=== PATIENT | female | born 1985 | race Caucasian/White ===

== ENCOUNTER → 2016-12-21 | Outpatient (CLI) | payer OTHER ==
[2016-12-21 13:54] LABS: PREG INTERNAL NEGATIVE QC NEG CLEAR BACKGROUND; PREG INTERNAL POSITIVE QC POS CONTROL LINE
== END | disposition home or self-care (01) ==
LOC: C.LAB1850 12:15
PROVIDERS: ATTEND Obstetrics & Gynecology
DX: N91.2 Amenorrhea, unspecified (principal)

== ENCOUNTER → 2016-12-23 | Outpatient (CLI) | payer OTHER | END | disposition home or self-care (01) | LOC: C.LAB1850 11:33 | PROVIDERS: ATTEND Obstetrics & Gynecology | DX: Z32.00 Encounter for pregnancy test, result unknown (principal) ==

== ENCOUNTER → 2016-12-28 | Outpatient (CLI) | payer OTHER | END | disposition home or self-care (01) | LOC: C.LAB1850 09:58 | PROVIDERS: ATTEND Obstetrics & Gynecology | DX: O02.1 Missed abortion (principal) ==

== ENCOUNTER → 2017-01-13 | Outpatient (CLI) | payer OTHER ==
[2017-01-13 17:19] LABS: URINE APPEARANCE CLEAR (CLEAR); URINE BILIRUBIN NEG (NEG); URINE COLOR YELLOW; URINE EPITHELIAL CELL AUTO >30 /lpf (0-5); URINE NITRITE NEG (NEG); URINE SPECIFIC GRAVITY 1.024 (1.000-1.030); UROBILINOGEN NEG (NEG)
[2017-01-13 17:25] LABS: MANUAL MICROSCOPIC REQUIRED? NO; REVIEW REQ? YES
== END | disposition home or self-care (01) ==
LOC: C.LABSPEC 16:34
PROVIDERS: ATTEND Obstetrics & Gynecology
DX: Z34.81 Encounter for supervision of other normal pregnancy, first trimester (principal)

== ENCOUNTER → 2017-01-19 | Outpatient (CLI) | payer OTHER ==
[2017-01-19 13:17] LABS: BASO % 0.2 %; BASO ABS # 0.02 K/uL (0-0.2); COMPLETE YES; EOS % 3.3 %; HEMATOCRIT 38.7 % (37-47); IG% 0.2 %; LYMPH % 23.9 %; LYMPH ABS # 2.19 K/uL (1.2-3.4); MEAN CELL VOLUME 84.3 fL (80-100); MEAN CORPUSCULAR HEMOGLOBIN 29.4 pg (25-34); MEAN CORPUSCULAR HGB CONC 34.9 g/dl (32-36); MEAN PLATELET VOLUME 10.1 fL (7.4-10.4); MONO % 6.3 %; NEUT % 66.1 %; PLATELET COUNT 261 K/uL (130-400); RED BLOOD COUNT 4.59 M/uL (4.2-5.4); WHITE BLOOD COUNT 9.16 K/uL (4.8-10.8)
[2017-01-21 14:58] LABS: CHLAMYDIA TRACH RNA*** NOT DETECTED (NOT DETECTED); GC (NEIS GONORRHOEAE)RNA** NOT DETECTED (NOT DETECTED)
== END | disposition home or self-care (01) ==
LOC: C.LAB1850 11:05
PROVIDERS: ATTEND Obstetrics & Gynecology
DX: Z34.81 Encounter for supervision of other normal pregnancy, first trimester (principal)

== ENCOUNTER → 2017-03-22 | Outpatient (CLI) | payer OTHER ==
[2017-03-22 13:42] LABS: GTGD 50 Grams
== END | disposition home or self-care (01) ==
LOC: C.LAB1850 10:48
PROVIDERS: ATTEND Obstetrics & Gynecology
DX: Z34.82 Encounter for supervision of other normal pregnancy, second trimester (principal)

== ENCOUNTER → 2017-04-07 | Outpatient (CLI) | payer OTHER | END | disposition home or self-care (01) | LOC: C.LAB1850 08:50 | PROVIDERS: ATTEND Obstetrics & Gynecology | DX: O28.1 Abnormal biochemical finding on antenatal screening of mother (principal) ==

== ENCOUNTER → 2017-04-12 | Outpatient (CLI) | payer OTHER | END | disposition home or self-care (01) | LOC: C.LAB1850 08:56 | PROVIDERS: ATTEND Obstetrics & Gynecology | DX: O28.1 Abnormal biochemical finding on antenatal screening of mother (principal) ==

== ENCOUNTER → 2017-06-14 | Outpatient (CLI) | payer OTHER | END | disposition home or self-care (01) | LOC: C.LABSPEC 11:11 | PROVIDERS: ATTEND Obstetrics & Gynecology | DX: Z34.83 Encounter for supervision of other normal pregnancy, third trimester (principal) ==

== ENCOUNTER → 2017-06-22 | Outpatient (CLI) | payer OTHER ==
[2017-06-22 10:17] LABS: HEMATOCRIT 34.1 % (37-47); HEMOGLOBIN 11.4 g/dL (12.0-16.0)
== END | disposition home or self-care (01) ==
LOC: C.LAB1850 08:49
PROVIDERS: ATTEND Obstetrics & Gynecology
DX: Z34.83 Encounter for supervision of other normal pregnancy, third trimester (principal); O28.1 Abnormal biochemical finding on antenatal screening of mother

== ENCOUNTER → 2017-08-11 | Outpatient (CLI) | payer OTHER ==
[~2017-08-11] MED LIST: PRENTAB26 PO; SERT-234 PO
== END | disposition home or self-care (01) ==
LOC: C.LABSPEC 13:04
PROVIDERS: ATTEND Obstetrics & Gynecology
DX: Z34.83 Encounter for supervision of other normal pregnancy, third trimester (principal)

== ENCOUNTER 2017-08-19 00:52 | Inpatient (IN) | payer OTHER ==
[~2017-08-19] VITALS: Ht 165.1 cm; Wt 116.1 kg
[2017-08-19] VITALS (7 sets, daily range): BP systolic 116–134; BP diastolic 75–83; PULSE 72–84; TEMP 36.8–36.9; O2SAT 96–98; Ht 165.1 cm; Wt 116.1 kg
[2017-08-19] MEDS ORDERED: PRENTAB26 PO (01:36)
[2017-08-19] MEDS ORDERED: SERT-234 PO (01:36)
[2017-08-19 01:53] LABS: HEMATOCRIT 32.2 % (37-47); HEMOGLOBIN 10.6 g/dL (12.0-16.0); MEAN CELL VOLUME 79.1 fL (80-100); MEAN PLATELET VOLUME 10.1 fL (7.4-10.4); NUCLEATED RED BLOOD CELL ABS 0.03 K/uL (0-0); PLATELET COUNT 221 K/uL (130-400); RED CELL DISTRIBUTION WIDTH CV 15.5 % (11.5-14.5); RED CELL DISTRIBUTION WIDTH SD 45.3 fL (36.4-46.3); WHITE BLOOD COUNT 9.95 K/uL (4.8-10.8)
[2017-08-19 02:01] LABS: MEAN CORPUSCULAR HGB CONC 32.9 g/dl (32-36)
[2017-08-19] MEDS ORDERED: EpHEDrine SULFATE INJ 50 MG/ML AMP ONE (02:07)
[2017-08-19] MEDS ORDERED: BUPIVACAINE 0.25% 30 ML VIAL ONE (02:07)
[2017-08-19] MEDS ORDERED: FENTANYL CITRATE INJ 50 MCG/1 ML 2 ML VIAL ONE ×2 (02:08→10:58)
[2017-08-19] MEDS ORDERED: FENTANYL 2MCG/ML ROPIV 1.25MG/ML 100ML BAG EPI ONE (02:08)
[2017-08-19] MEDS ORDERED: NALOXONE HCL INJ 1 MG in SODIUM CHLORIDE 0.9% 1000ML 1,000 ML IV PRN ×4 (02:53)
[2017-08-19] MEDS ORDERED: LACTATED RINGER'S 1000ML 500 ML IV PRN ×2 (02:53→04:14)
[2017-08-19] MEDS ORDERED: PROMETHAZINE HCL INJ 25 MG in SODIUM CHLORIDE 0.9% 50ML 50 ML IV PRN (03:00)
[2017-08-19] MEDS ORDERED: ONDANSETRON INJ 2 MG/ML 2 ML VIAL IV PRN ×3 (03:00→11:00)
[2017-08-19] MEDS ORDERED: EpHEDrine SULFATE INJ 50 MG/ML AMP IV PRN ×2 (03:00→11:00)
[2017-08-19] MEDS ORDERED: NALOXONE HCL INJ 0.4 MG/1 ML VIAL/CARP IV PRN (03:00)
[2017-08-19] MEDS ORDERED: FENTANYL 2MCG/ML ROPIV 1.25MG/ML 100ML BAG EPI PRN (03:00)
[2017-08-19] MEDS ORDERED: NALBUPHINE HCL INJ 10 MG/ML AMP IV PRN (03:00)
[2017-08-19] MEDS ORDERED: DiphenhydrAMINE HCL 50 MG/ML VIAL IV PRN ×2 (03:00→10:45)
[2017-08-19] MEDS ORDERED: OXYTOCIN 30 UNITS/500ML NSS IV PRN (04:15)
[2017-08-19] MEDS ORDERED: CEFAZOLIN IV 3,000 MG in SYRINGE 0 ML IV SCH (06:00)
[2017-08-19] MEDS ORDERED: LACTATED RINGER'S 1000ML 1,000 ML IV SCH (09:34)
[2017-08-19] MEDS ORDERED: CITRIC ACID/SODIUM CITRATE 15 ML UDC ONE (09:38)
[2017-08-19] MEDS ORDERED: CITRIC ACID/SODIUM CITRATE 15 ML UDC PO ONE (09:45)
[2017-08-19] MEDS ORDERED: LIDOCAINE/EPINEPHRINE 2% 1:200,000 20 ML SDV ONE (09:57)
[2017-08-19] MEDS ORDERED: OXYTOCIN INJ 10 UNITS/ML VIAL ONE (09:57)
[2017-08-19] MEDS ORDERED: MoRPHine SULFATE PF 1 MG/ML 10 ML AMP/VIAL ONE (10:02)
[2017-08-19] MEDS ORDERED: ONDANSETRON INJ 2 MG/ML 2 ML VIAL ONE (10:07)
[2017-08-19] MEDS ORDERED: PHENYLEPHRINE 100MCG/ML 5ML SYR ONE (10:23)
[2017-08-19] MEDS ORDERED: KETOROLAC TROMETHAMINE 30 MG/ML VIAL ONE (10:41)
[2017-08-19] MEDS ORDERED: LANOLIN OINT EXT PRN (10:45)
[2017-08-19] MEDS ORDERED: BENZOCAINE 20% AER SPR 82.5 GM CAN EXT PRN (10:45)
[2017-08-19] MEDS ORDERED: SUPERCREAM 0.870 % 15GM JAR EXT PRN (10:45)
[2017-08-19] MEDS ORDERED: HYDROCORTISONE ACETATE 25 MG SUPP PR PRN (10:45)
[2017-08-19] MEDS ORDERED: DIPHTHERIA/TETANUS/PERTUSSIS 0.5 ML SYR/VIAL IM. ONE (10:45)
--- NOTE | 2017-08-19 10:52 | [facility] Post Operative Brief Note ---
Immediate Operative Summary Operative Date Aug 19, 2017. Pre-Operative Diagnosis 1) Term 2) Non-reassuring FHT'ing 3) Desired Sterilization Post-Operative Diagnosis same Procedure(s) Performed 1) Emergent LCT C/S 2) Bilaterl tubal ligation Surgeon Yas Reservation Clerk Surgeon(s) Nursing Estimated Blood Loss 800 Findings See Below (exam, normal appearing tubes and ovaries bilaterally, bilateral tubal ligation) viable female, Apgars 7/8; weigh 6lbs 2 ozs, gasses pending, placenta for Fluids (cc crystalloids) 1500 Specimens 1) Placenta 2) Cord Bloods 3) Cord gasses 4) tibal segments Drains Casas to gravity Anesthesia Type L&D Only EPID Exist Complication(s) none Disposition Accompanied Pt To Recover: yes Disposition: L&D
[2017-08-19] MEDS ORDERED: MEPERIDINE HCL 25 MG/ML CARP IV PRN (11:00)
[2017-08-19] MEDS ORDERED: NO NARCOTICS OR SEDATIVES SCH (11:00)
[2017-08-19] MEDS ORDERED: ATROPINE SULFATE 0.1 MG/ML 5ML SYR IV PRN (11:00)
[2017-08-19] MEDS ORDERED: ACETAMINOPHEN 1000 MG/100 ML IV IV ONE (11:00)
[2017-08-19] MEDS ORDERED: CONTINUE MEDICATION ONE (11:00)
[2017-08-19] MEDS ORDERED: FENTANYL CITRATE INJ 50 MCG/1 ML 2 ML VIAL IV PRN (11:00)
[2017-08-19] MEDS ORDERED: MoRPHine SULFATE PF 1 MG/ML 10 ML AMP/VIAL EPI PRN (11:00)
[2017-08-19] MEDS ORDERED: DC INTRASPINAL MORPHINE PRN (11:00)
[2017-08-19] MEDS ORDERED: KETOROLAC TROMETHAMINE 30 MG/ML VIAL IV. PRN (11:00)
--- NOTE | 2017-08-19 11:03 | Anesthesia Procedure Note ---
Anesthesia Epidural Removal Nt Date & Time Aug 19, 2017 at 11:03 Vital Signs Pain Intensity: 9.0 Notes Mental Status: alert / awake / arousable, participated in evaluation Nausea / Vomiting: adequately controlled Pain: adequately controlled Airway Patency, RR, SpO2: stable & adequate BP & HR: stable & adequate Hydration State: stable & adequate Neuraxial Anesthesia: was administered, sensory block is resolving Anesthetic Complications: no major complications apparent, pt satisfied with anesthetic care Epidural: removed without complications, with tip intact
--- NOTE | 2017-08-19 11:39 | OPERATIVE REPORT ---
DATE OF OPERATION: 08/19/2017 PREOPERATIVE DIAGNOSES: 1. Term . 2. Nonreassuring heart rate tracing. 3. Desired permanent surgical sterilization. POSTOPERATIVE DIAGNOSES: Same. PROCEDURE PERFORMED: 1. Emergent primary low cervical transverse section. 2. Bilateral tubal ligation. SURGEON: Dr. Sorenson. ANESTHESIA: Epidural. FINDINGS: Viable female infant with Apgars of 7 and 8 and weight of 6 pounds 2 ounces. Arterial and venous cord gases pending. Placenta delivered for pathological evaluation. Normal appearing tubes and ovaries bilaterally. Bilateral segment of fallopian tube sent for pathological evaluation. PROCEDURE IN DETAIL: The patient was taken to the operating room and after an adequate epidural anesthesia level, was placed in supine position, draped and prepped in usual fashion. Pfannenstiel-type incision was made. Underlying subcutaneous tissue was dissected down to the ventral abdominal fascia, which was nicked and opened in a horizontal manner. Preperitoneal fascia was dissected away until the peritoneal cavity was entered and opened in a vertical manner. The Mack self-retaining retractor was then inserted into the peritoneal cavity and placed. The peritoneum overlying the lower uterine segment was elevated, opened in a semi-lunar fashion, the inferior margin of which was taken down creating the bladder flap. The uterus was entered sharply and extended in a semilunar fashion manually. Viable female was delivered. Cord was clamped and cut and the baby was passed off to pediatrics who was in attendance for the delivery. Cord gases, cord blood samples were obtained and the placenta was delivered spontaneously and sent for pathological evaluation. The uterus was exteriorized. The uterine cavity was wiped clean off any residual blood tissue and/or clot. The uterine incision was then closed with 2 layers of 4-0 Vicryl, the first a running locking stitch, the second an imbricating stitch. Hemostasis achieved. The right fallopian tube was then isolated followed to the fimbriated end, a segment of which was elevated, doubly ligated with 0 plain suture and cut and removed from the field. Hemostasis present. In a similar fashion, the left fallopian tube was isolated followed to the fimbriated end, a segment of which was elevated, doubly ligated with 0 plain suture, and cut and removed from the field. Hemostasis present. The uterus was returned to the pelvic cavity. The pericolic gutters were cleared bilaterally off any blood tissue and/or clot. The uterine incision was inspected for hemostasis, which was present. Both tubal stumps were inspected for hemostasis, which was present. Sponge and needle count was correct. The Mack retractor was removed from the incision. The rectus muscle was plicated in the midline with a running 2-0 Vicryl stitch. The fascia was closed laterally with 0 Vicryl suture. Subcutaneous tissue was irrigated with warm saline and the skin incision was closed with a 4-0 Monocryl subcuticular suture. Sterile dressing was applied. The patient was taken to the recovery room in satisfactory condition. I attest to the content of the Intraoperative Record and any orders documented therein. Any exception s are noted below.
[2017-08-19] MEDS: OXYTOCIN INJ 20 UNITS in LACTATED RINGER'S 1000ML 1,000 ML IV SCH ×2 (14:42→22:45)
[2017-08-19] MEDS ORDERED: NURSING VERBAL MED ORDER ONE (22:15)
[2017-08-19] MEDS: SERTRALINE HCL 100 MG TAB PO SCH (22:34)
[2017-08-20] VITALS (7 sets, daily range): BP systolic 118–138; BP diastolic 78–97; PULSE 81–87; TEMP 36.5–36.9; O2SAT 94–98
[2017-08-20] MEDS ORDERED: KETOROLAC TROMETHAMINE 30 MG/ML VIAL IV. PRN (04:15)
[2017-08-20] MEDS ORDERED: OXYCODONE/ACETAMINOPHEN 5-325 TAB PO PRN (04:15)
[2017-08-20] MEDS: IBUPROFEN 600 MG TAB PO PRN ×5 (05:03→23:34)
[2017-08-20] MEDS: OXYCODONE/ACETAMINOPHEN 5-325 TAB PO PRN ×5 (05:03→23:35)
--- NOTE | 2017-08-20 07:07 | Progress Note ---
Subjective Aug 20, 2017. Subjective conversation w/ patient, physical exam, chart review, lab review Ambulation: ambulating normally, limited ambulation Voiding: no voiding problems Passing Gas: Yes Diet Tolerance: Clear Liquids Lochia: Small Feeding Type: Breast Feeding Review of Systems Constitutional: No fever, No chills Respiratory: No cough, No shortness of breath Cardiac: No chest pain, No palpitations Abdomen: No pain, No nausea, No vomiting Female : No dysuria Objective Vital Signs Date Time Temp Pulse Resp B/P (MAP) Pulse Ox O2 Delivery O2 Flow Rate FiO2 08/20/17 05:00 36.7 83 18 132/78 (96) 98 Room Air 08/20/17 02:50 16 97 08/20/17 01:50 16 98 08/20/17 00:50 16 96 08/19/17 23:50 Room Air 08/19/17 23:50 36.8 72 16 124/78 (93) 98 Room Air 08/19/17 23:50 16 98 08/19/17 23:15 16 97 08/19/17 22:00 18 96 08/19/17 21:30 18 96 08/19/17 20:30 18 96 08/19/17 19:30 97 Room Air 08/19/17 19:30 18 96 08/19/17 19:30 36.8 76 16 134/83 (100) Room Air 08/19/17 18:15 36.9 84 20 116/75 (89) 97 Room Air 08/19/17 18:15 97 Room Air 08/19/17 18:15 18 97 Physical Exam General Appearance: WELL-APPEARING, WD/WN, NO APPARENT DISTRESS Respiratory/Chest: lungs clear, no respiratory distress Cardiovascular: regular rate, rhythm, no murmur Abdomen: non tender, soft Fundus: Firm, Relation to Umbilicus (1 cm below ) Incision Description: Clean, Dry & Intact Extremities: normal inspection, no pedal edema Laboratory Results Last 24 Hours Test 08/20/17 06:04 Medications Current Inpatient Medications Medications (Trade) Dose Ordered Sig/Tasia Route Start Time Stop Time Status Last Admin Dose Admin Oxytocin (Pitocin IV) 30 units UD PRN IV 08/19/17 04:15 09/18/17 04:14 08/19/17 06:01 30 UNITS Lactated Ringer's 500 ml @ 999 mls/hr Q31M PRN IV 08/19/17 04:14 09/18/17 04:13 Ketorolac Tromethamine (Toradol Inj) 30 mg Q6H PRN IV. 08/20/17 04:15 08/25/17 04:14 Oxycodone/ Acetaminophen (Percocet 5-325mg Tab) 1 tab Q4H PRN PO 08/20/17 04:15 09/03/17 04:14 08/20/17 05:03 1 TAB Oxycodone/ Acetaminophen (Percocet 5-325mg Tab) 2 tab Q4H PRN PO 08/20/17 04:15 09/03/17 04:14 Ibuprofen (Motrin Tab) 600 mg Q4H PRN PO 08/19/17 10:45 09/18/17 10:44 08/20/17 05:03 600 MG Ondansetron HCl (Zofran Inj) 4 mg Q4H PRN IV 08/19/17 10:45 09/18/17 10:44 Prenat Multivit/ [place]/Iron/Folic Ac ( Vitamin Tab) 1 tab DAILY PO 08/20/17 08:00 09/19/17 07:59 Magnesium Hydroxide (Milk Of Magnesia Susp) 30 ml HS PO 08/20/17 22:00 09/19/17 21:59 Ferrous Sulfate (Feosol Tab) 325 mg DAILY PO 08/20/17 08:00 09/19/17 07:59 Cocaine HCl (Supercream 0.870% Cr) BID PRN EXT 08/19/17 10:45 09/02/17 10:44 Lanolin (Lanolin Oint) PRN PRN EXT 08/19/17 10:45 09/18/17 10:44 Hydrocortisone Acetate (Anusol Hc Supp) 25 mg BID PRN GA 08/19/17 10:45 09/18/17 10:44 Benzocaine (Dermoplast Aero Spr) 1 appln PRN PRN EXT 08/19/17 10:45 09/18/17 10:44 Diphenhydramine HCl (Benadryl Cap) 25 mg QID PRN PO 08/19/17 10:45 09/18/17 10:44 08/20/17 05:03 25 MG Diphenhydramine HCl (Benadryl Inj) 25 mg QID PRN IV 08/19/17 10:45 09/18/17 10:44 Senna (Senokot Tab) 17.2 mg HS PO 08/20/17 22:00 09/19/17 21:59 Sertraline HCl (Zoloft Tab) 100 mg DAILY@2200 PO 08/19/17 22:00 09/18/17 21:59 08/19/17 22:34 100 MG Assessment and Plan Post-Op Day#: 1 Continue Routine Care: 31, f, , B+/GBS-/RI, post op day 1. Pt is doing well clinically. Patient is ambulating normally. Casas was removed this am--pt has not yet urinated yet on her own. Vital reviewed, WNL. Hg 10.6 on admission--->pending this am. Plan: 1. Recovery from csection; advance diet, monitor i/o, ambulate, control pain, monitor lochia, support BF Resident Physician Supervision Note: I interviewed and examined the patient. Discussed with Dr. Mcguire and agree with findings and plan as documented in the note. Any exceptions or clarifications are listed here: Discussed surgery and finding with patient. Routine post-op care Documented By: Capo Sorenson
[2017-08-20 07:19] LABS: BASO % 0.1 %; BASO ABS # 0.01 K/uL (0-0.2); EOS % 1.5 %; EOS ABS # 0.13 K/uL (0-0.5); HEMATOCRIT 26.2 % (37-47); HEMOGLOBIN 8.4 g/dL (12.0-16.0); IG# 0.07 K/uL (0.00-0.02); LYMPH % 16.9 %; MEAN CELL VOLUME 79.9 fL (80-100); MEAN CORPUSCULAR HEMOGLOBIN 25.6 pg (25-34); MEAN CORPUSCULAR HGB CONC 32.1 g/dl (32-36); MEAN PLATELET VOLUME 10.3 fL (7.4-10.4); MONO % 7.2 %; MONO ABS # 0.64 K/uL (0.11-0.59); NEUT % 73.5 %; NEUT ABS # 6.54 K/uL (1.4-6.5); PLATELET COUNT 167 K/uL (130-400); RED CELL DISTRIBUTION WIDTH SD 46.9 fL (36.4-46.3); WHITE BLOOD COUNT 8.89 K/uL (4.8-10.8)
[2017-08-20] MEDS ORDERED: SERTRALINE HCL 100 MG TAB PO SCH (08:00)
[2017-08-20] MEDS: FERROUS SULFATE 325 MG TAB PO SCH (08:07)
[2017-08-20] MEDS: PRENATAL VITAMIN TAB PO SCH (08:07)
[2017-08-20] MEDS: SERTRALINE HCL 100 MG TAB PO SCH (21:44)
[2017-08-20] MEDS ORDERED: MAGNESIUM HYDROXIDE SUSP 30 ML UDC PO SCH (22:00)
[2017-08-20] MEDS ORDERED: SENNA 8.6 MG TAB PO SCH (22:00)
[2017-08-21] MEDS: OXYCODONE/ACETAMINOPHEN 5-325 TAB PO PRN ×4 (04:07→18:08)
[2017-08-21] MEDS: IBUPROFEN 600 MG TAB PO PRN ×4 (04:08→18:07)
--- NOTE | 2017-08-21 06:14 | Discharge Instructions ---
Discharge Instructions Date of Service Aug 21, 2017. Admission Reason for Admission: Rupture Of Membranes Discharge Discharge Diagnosis / Problem: csection Discharge Goals Goal(s): Routine recovery after Medications Continue Dispensed Medications: supercream, dermaplast, tucks, lansinoh Activity Recommendations Activity Limitations: per Instructions/Follow-up section . Instructions / Follow-Up Instructions / Follow-Up ACTIVITY RECOMMENDATIONS: * Gradual return to full activity over the next 2-3 weeks. * No lifting - nothing heavier than baby over the next 2-3 weeks. * Do not engage in vigorous exercise, sexual activity or sports until cleared by your physician. * Do not drive or operate any motorized equipment until cleared by your physician. * You may shower/bathe daily. MEDICATIONS: For discomfort or pain, you may use Acetaminophen (Tylenol), Ibuprofen (Advil), or Naproxen (Aleve) following the package directions. For constipation you may use Colace following the package directions. BREAST CARE: If you are not breast feeding: * Wear a supportive bra 24 hours a day for one to two weeks. * Avoid stimulating your breasts and nipples as much as possible during the first few weeks after delivery. * When taking a shower, have the warm water hit your back, not breasts. * When your breasts feel full, apply ice packs. Usually three to four times a day helps ease the discomfort. * Take a mild pain medication (Tylenol / Motrin) when you are uncomfortable. If breast feeding: * Use breast milk to lubricate nipples. Lansinoh cream may be used for sore nipples. You do not need to remove cream prior to breast feeding. If using a different brand of cream, check the label for directions regarding removal of cream prior to nursing. * Wear a supportive bra. * If having problems with breasts or breast feeding, call a advertising sales consultant or your health care provider. SPECIAL CARE INSTRUCTIONS: When you are discharged from the hospital, it is important for you to follow the instructions listed below: * During the first week at home, you should be able to care for yourself and your baby. In addition, the usual light household activities are encouraged. * Limit your activities to the way you feel. Do not try to clean the house or move furniture. Be sensible. * If you actively engage in sports and have done so up until the time of your delivery, you may resume these activities as soon as you feel able. This may take up to one month or even longer. Use good judgment. * Continue to take your vitamins for at least six weeks after the of your baby. * Your diet need not be limited unless you were on a special diet before your delivery. Breast-feeding mothers need around 2500 calories per day and at least 64-80 ounces of fluid per day (8 to 10 glasses). * You should eat foods from the four major food groups. Crash diets or fad diets are to be avoided. Eating lean meats, fresh fruits and vegetables, low-fat dairy products, high fiber foods and a regular exercise program, will help you get back to your pre- weight without putting your health at risk. * Constipation is sometimes a problem after delivery. Take a mild laxative as needed. If breast feeding, Milk of Magnesia is acceptable to use. You may use a suppository or Fleets enema. * A daily shower or tub bath is suggested. Wash incision daily with warm soapy water and pat dry. It doesn't need to be covered unless drainage is present. * A bloody vaginal discharge will usually continue until around four weeks . A small amount of bleeding may continue for as long as six weeks. Vaginal discharge changes from the bright red bleeding after delivery to pink then brownish and finally yellowish-pink before becoming white and disappearing. * Bleeding may increase with activity. Your first period may come in 4-8 weeks. If you are breast feeding, your period may be delayed even longer. * [place]ola (sex) can begin whenever both you and your partner feel comfortable and do not have any form of genital infection. It is recommended that you wait at least six weeks for internal and external healing to occur. If you have questions, please talk to your health care practitioner. A condom should be used to prevent infection and . * Foreplay, gentle intercourse and lubrication is very important the first several times to prevent pain. A water-based lubricant such as K-Y jelly or Astroglide may be used. * If you have RH negative blood and your baby is RH positive, you will receive RHOGAM by injection prior to discharge. The nurse will give you a card to keep with you that has the date and place that you received RHOGAM after delivery. * During your care, you had a Rubella screen done to check for the presence of rubella antibodies in your blood. If your test was negative, you will receive a Rubella vaccine prior to discharge. This vaccine may cause a fever, soreness at the injection site and flu-like symptoms. If these symptoms persist, notify your health care practitioner. is not advised for one month after a Rubella vaccine. * Verbalizes understanding of car seat law as reviewed with patient nursing. * Car Seat hand-out given and reviewed with patient by nursing. * Shaken baby information reviewed with patient by nursing. Call you doctor if: * Heavy bleeding (saturating several pads an hour) or passing clots the size of your fist. * A fever >101 degrees F (38.3 degrees C) on two occasions four hours apart and /or chills. * Unusual pain in the pelvic or vaginal areas. * Call the doctor for any increased redness, drainage or swelling around the incision and any pain unrelieved by prescribed pain medication. * "Baby Blues" lasting longer than two weeks. If you have any questions or concerns, call your health care practitioner at . FOLLOW UP VISIT: * Please call the office at to schedule a 6 week examination. It is important you keep this appointment. It is important for you to make arrangements for either yearly or twice yearly check-ups thereafter. Current Hospital Diet Patient's current hospital diet: Regular OB Diet Discharge Diet Recommended Diet: Regular Diet, Regular OB Diet Procedures Procedures Performed: PRIMARY CAESAREAN SECTION WITH BILATERAL TUBAL LIGATION Pending Studies Studies pending at discharge: no Medical Emergencies . Who to Call and When: Medical Emergencies: If at any time you feel your situation is an emergency, please call 529 immediately. . Non-Emergent Contact Non-Emergency issues call your: Primary Care Provider, Ticket Marker . . "Provider Documentation" section prepared by Bhanu Mcguire. .
[2017-08-21 07:05] LABS: HEMATOCRIT 26.8 % (37-47); HEMOGLOBIN 8.4 g/dL (12.0-16.0)
--- NOTE | 2017-08-21 07:11 | Progress Note ---
Subjective Aug 21, 2017. Subjective conversation w/ patient, physical exam, chart review, lab review Ambulation: ambulating normally Voiding: no voiding problems Passing Gas: Yes Diet Tolerance: Regular Diet Lochia: Small Feeding Type: Breast Feeding Review of Systems Constitutional: No fever, No chills Respiratory: No cough, No shortness of breath Cardiac: No chest pain, No palpitations Abdomen: No nausea, No vomiting Female : No dysuria Objective Vital Signs Date Time Temp Pulse Resp B/P (MAP) Pulse Ox O2 Delivery O2 Flow Rate FiO2 08/20/17 23:40 Room Air 08/20/17 23:40 36.6 87 18 118/78 (91) Room Air 08/20/17 15:50 Room Air 08/20/17 15:50 36.5 84 16 129/97 (108) 96 Room Air 08/20/17 08:00 36.9 81 18 138/87 (104) 94 Room Air Physical Exam General Appearance: WELL-APPEARING, WD/WN, NO APPARENT DISTRESS Respiratory/Chest: lungs clear, no respiratory distress Cardiovascular: regular rate, rhythm, no murmur Abdomen: non tender, soft Fundus: Firm, Relation to Umbilicus (1 cm below ) Incision Description: Clean, Dry & Intact Extremities: non-tender, normal inspection Laboratory Results Last 24 Hours Test 08/21/17 06:51 Hemoglobin 8.4 g/dL Hematocrit 26.8 % Assessment and Plan Post-Op Day#: 2 Continue Routine Care: 31, f, , B+/GBS-/RI, post op day 2. Pt is doing well clinically. Does c/o pain. Plan: 1. Recovery from csection; monitor i/o, ambulate, control pain, monitor lochia, support BF 2. Discussed discharge planning--likely tomorrow 08/22. Patient may need scripts for pain meds and Sertraline. Resident Physician Supervision Note: I interviewed and examined the patient. Discussed with Dr. Mcguire and agree with findings and plan as documented in the note. Any exceptions or clarifications are listed here: [None] Documented By: David Lu
[2017-08-21] MEDS: FERROUS SULFATE 325 MG TAB PO SCH (07:49)
[2017-08-21] MEDS: PRENATAL VITAMIN TAB PO SCH (07:50)
[2017-08-21 08:10] VITALS: BP 110/74; PULSE 80; TEMP 36.8
[2017-08-21 15:50] VITALS: BP 128/78; PULSE 77; TEMP 36.8; O2SAT 98
[2017-08-21] MEDS ORDERED: OXYC-57 PO (17:15)
--- NOTE | 2017-08-21 17:18 | Progress Note ---
Progress Note Date of Service Aug 21, 2017. Progress Note Feeling well, requesting discharge. Incision healing well. Vitals stable. Ambulating, eating/drinking well. No complaints. Rx percocet, [place] PDMP checked - no results. Followup in office with Dr Sorenson. Discharge instructions reviewed.
[2017-08-21 18:30] VITALS: BP_DIAS 78; PULSE 77; TEMP 36.8
--- NOTE | 2017-08-23 13:19 | DISCHARGE SUMMARY ---
ADMITTING DIAGNOSES: 1. Term . 2. Spontaneous rupture of membranes. 3. Desired permanent surgical sterilization. DISCHARGE DIAGNOSES: 1. Term . 2. Spontaneous rupture of membranes. 3. Desired permanent surgical sterilization. 4. Nonreassuring heart rate tracings. PROCEDURES PERFORMED: 1. Urgent primary low cervical transverse section. 2. Bilateral tubal ligations. DISCHARGE MEDICATIONS: 1. Percocet 5/325 1-2 p.o. every 4-6 hours p.r.n. pain. 2. Motrin 600 mg p.o. every 6 hours p.r.n. pain. ADMISSION HISTORY: The patient is a 31-year-old 5, para 3 with an EDC of 09/06/2017, who was admitted to labor and delivery at 37+ weeks gestational age with spontaneous rupture of membranes. The patient states that the membranes ruptured early in the morning of day of admission. She denied vaginal bleeding or contractions. The patient had had an unremarkable course. She had expressed during the a desire for permanent surgical sterilization. State tubal papers had been signed on 07/26/2017. Laboratory values for showed a blood type of B positive, antibody negative, rubella immune, hepatitis B negative. She had a negative cell-free DNA analysis. She had an elevated 1-hour Glucola at 16 weeks with normal glucose tolerances test at both 16 and 28 weeks. She had negative third trimester beta strep culture. ADMISSION PHYSICAL EXAMINATION: GENERAL: Showed a gravid female, in no acute distress. VITAL SIGNS: Blood pressure 112/80, weight of 256 pounds. HEENT EXAMINATION: Unremarkable. NECK: Supple. LUNGS: Clear. HEART: With a regular rhythm and rate. ABDOMEN: Gravid, vertex, estimated weight of 7 pounds. PELVIC EXAMINATION: Showed the cervix to be 3-4 cm dilated, 50% effaced, -3 station, and posterior. Gross rupture of membranes. EXTREMITY EXAMINATION: Showed no deep calf tenderness. NEUROLOGICAL EXAMINATION: Grossly intact. ADMISSION LABORATORY VALUES: Showed an H and H of 10.6 and 32.2. HOSPITAL COURSE: The patient came in and began to develop some contractions that were uncomfortable. Anesthesia was consulted and an epidural was placed. Following placement of the epidural, Pitocin was initiated because of the ruptured membranes. At 0700 hours on day of delivery, the delivering physician assumed care for the patient. At this point, the patient's tracing became category 2 with deep decelerations with contractions, there was initial variability and accelerations noted. In an attempt to better help monitor labor, an intrauterine pressure catheter was placed to allow better titration of the Pitocin. The decelerations continued to occur and the tracing became category 3 necessitating discontinuation of the Pitocin. Attempts to restart the Pitocin were unsuccessful with a category 3 tracing and as a result, an urgent section was called because of the nonreassuring heart rate tracing. The patient was taken to the operating room where she underwent the urgent primary low cervical transverse section. Operative findings showed a viable female with Apgars of 7 and 8 and a weight of 6 pounds 2 ounces. Placenta was sent for pathological evaluation. Because the patient had requested bilateral tubal sterilization and the surgery was done on an emergent basis, the bilateral tubal ligation was performed. Postoperatively, the patient did well. Casas catheter was removed on the first postoperative day. H and H came back at 8.4 and 26.2. On the second postoperative day, H and H continued to be stable. The patient was ambulating without difficulty and tolerating a regular diet and requested discharge home. She was given the routine discharge instructions and the prescriptions for the medications as listed as above. She will follow up in the office for a postoperative check, but as always she has been instructed to call with any questions, problems, or difficulties.
== END 2017-08-21 18:35 | disposition home or self-care (01) | DRG 766 ==
LOC: C.LD 00:52 → C.OPB 00:52 → C.LD 01:35 → C.OBG 18:25
PROVIDERS: ADMIT Obstetrics & Gynecology; ATTEND Obstetrics & Gynecology
PROC: 0UB70ZZ Excision of Bilateral Fallopian Tubes, Open Approach (ICD-10-PCS; principal; 2017-08-19 10:04)
PROC: 10D00Z1 Extraction of Products of Conception, Low, Open Approach (ICD-10-PCS; principal; 2017-08-19 10:04)
DX: O76 Abnormality in fetal heart rate and rhythm complicating labor and delivery (principal); Z3A.37 37 weeks gestation of pregnancy; Z37.0 Single live birth

== ENCOUNTER 2023-08-03 15:48 | Inpatient (IN) ==
[2023-08-03 16:56] LABS: Appearance Urine Clear (Clear); Bacteria Urine Automated Negative (Negative); Bilirubin Urine Negative (Negative); Blood Urine Negative (Negative); Color Urine Yellow; Epithelial Cell Urine Auto >30 /lpf (0-5); Glucose Urine UA Negative (Negative); Ketones Urine Negative (Negative); Leukocyte Esterase Urine 2+ (Negative); Nitrite Urine Negative (Negative); Protein Urine Negative (Negative); Specific Gravity Urine 1.016 (1.000-1.030); Urobilinogen Urine Negative (Negative); pH Urine 5.5 (4.5-7.5)
[2023-08-03 17:02] LABS: Basophils # (auto) 0.04 K/uL (0.00-0.20); Basophils % (auto) 0.5 %; Eosinophils # (auto) 0.02 K/uL (0.00-0.50); Eosinophils % (auto) 0.3 %; Hematocrit (blood only) 40.5 % (37.0-47.0); Hemoglobin 14.4 g/dl (12.0-16.0); Immature Granulocytes # (auto) 0.03 K/uL (0.01-0.20); Immature Granulocytes % (auto) 0.4 %; Lymphocytes # (auto) 1.75 K/uL (1.20-3.40); Lymphocytes % (auto) 22.4 %; Mean Corpuscular Hemoglobin 30.5 pg (25.0-34.0); Mean Corpuscular Hgb Conc 35.6 g/dL (32.0-36.0); Mean Corpuscular Volume 85.8 fL (80.0-100.0); Mean Platelet Volume 9.6 fL (9.4-12.4); Monocytes # (auto) 0.48 K/uL (0.11-0.59); Monocytes % (auto) 6.1 %; Neutrophils # (auto) 5.49 K/uL (1.40-6.50); Neutrophils % (auto) 70.3 %; Platelet Count 247 K/uL (130-400); RDW Coefficient of Variation 11.9 % (11.5-14.5); RDW Standard Deviation 36.9 fL (36.4-46.3); Red Blood Count 4.72 M/uL (4.20-5.40); White Blood Count 7.81 K/ul (4.8-10.8)
--- NOTE | 2023-08-03 17:05 | XRay Report ---
SINGLE VIEW CHEST CLINICAL HISTORY: Dyspnea FINDINGS: An AP, portable, upright chest radiograph is compared to study dated 08/01/2023. The cardiom ediastinal silhouette is unremarkable. The lungs and pleural spaces are clear. No pneumothorax is see n. The bony thorax is grossly intact. IMPRESSION: No active disease in the chest. ACT 112: Negative or not required by law. Electronically signed by: Jonnie Weeks M.D. 08/03/2023 5:04 PM
[2023-08-03 17:21] LABS: Alanine Aminotransferase 9 U/L (7-52); Albumin Globulin Ratio 1.5 (0.9-2); Albumin Level 4.4 gm/dl (3.4-5.0); Alkaline Phosphatase 37 U/L (34-104); Anion Gap 8 (3-11); Aspartate Aminotransferase 13 U/L (13-39); BUN Creatinine Ratio 16.9 (10-20); Bilirubin,Total 0.6 mg/dl (0.2-1.0); Blood Urea Nitrogen 11 mg/dl (6-23); Calcium 9.1 mg/dl (8.6-10.3); Carbon Dioxide 24 mmol/L (21-32); Chloride 107 mmol/L (98-107); Est GFR (African American) 133.3 ml/min; Globulin 2.9 gm/dl (2.5-4.0); Glucose 92 mg/dl (70-99(Fasting)); Potassium 3.7 mmol/L (3.5-5.1); Sodium 139 mmol/L (136-145); Total Protein 7.3 gm/dl (6.0-8.3)
[2023-08-03 17:33] LABS: Base Excess ABG 0.4 mEq/L (-9-1.8); HCO3 ABG 23 mmol/L (19-24); Oxygen Saturation ABG 99.9 % (90-95); PCO2 ABG 30 mmHg (35-46); PO2 ABG 102 mmHg (80-95); pH ABG 7.49 (7.35-7.45)
[2023-08-03 17:33] LABS: Thyroid Stimulating Hormone 1.069 uIu/ml (0.300-4.500)
[2023-08-03 17:34] LABS: Amphetamines+Metham, Urine Neg (Neg); Barbiturates, Urine Neg (Neg); Benzodiazepine, Urine Neg (Neg); Cocaine, Urine Neg (Neg); MDMA (Ecstacy), Urine Neg (Neg); Marijuana, Urine Neg (Neg); Methadone, Urine Neg (Neg); Opiate, Urine Neg (Neg); Phencyclidine, Urine Neg (Neg)
[2023-08-03 17:40] LABS: Acetaminophen < 3 ug/ml (10-30); Salicylate < 3.0 mg/dl (3.0-30)
[2023-08-03 18:05] LABS: Allen Test Pos (Pos)
[2023-08-03 18:58] LABS: Pregnancy Test, Urine Negative (Negative)
--- NOTE | 2023-08-03 19:00 | Emergency Department Note ---
History of Present Illness General Chief complaint: Mental Health Evaluation Stated complaint: MENTAL HEALTH EVAL Time Seen by Provider: 08/03/23 16:15 History of Present Illness Provider complaint: Mental health evaluation 37-year-old female with history of anxiety presents emergency department for mental health evaluation. Patient reports she tried to kill her self today by send in her car with it running for at least 1 hour. She denies any headache. No drugs or alcohol. No chance of . Home Medications Medication Instructions Recorded Confirmed Type lorazepam 1 mg tablet (Ativan) 1 mg PO Q6H PRN anxiety #10 tabs 08/01/23 08/03/23 Rx Allergies Allergy/AdvReac Type Severity Reaction Status Date / Time No Known Allergies Allergy Verified 08/03/23 20:32 Past Med/Surg History Medical History No pertinent family history Acute anxiety Surgical History No pertinent past surgical history Social History Smoking Status: Current every day smoker Tobacco Type: E-cigarettes / Vaping Preferred Language: Turkish Communication Ability: Effective Facilities Manager Required: No Beliefs That Will Affect Care: None Feels Safe at Home: Yes Gender Identity: Female Assistive Devices: None Physical Exam Vital Signs Vital Signs - 24 hr 08/03/23 16:11 08/03/23 16:48 08/03/23 17:13 Temperature 37.1 C Temperature Source Oral Pulse Rate 80 70 Pulse Rate [Apical] Pulse Rate from SpO2 Sensor 70 Respiratory Rate 18 13 Respiratory Effort / Characteristics Non-Labored Spontaneous Respiratory Depth Normal Blood Pressure 120/87 Blood Pressure Mean 98 Blood Pressure Position Sitting Pulse Oximetry 100 98 98 Oxygen Delivery Method Room Air Room Air Sepsis Recent Fever Within 48 Hours No Sepsis New/Unexplained Change in Mental Status No Sepsis Action Taken by Nursing No Action Required 08/03/23 17:19 08/03/23 17:30 08/03/23 18:00 Temperature Temperature Source Pulse Rate 71 82 82 Pulse Rate [Apical] Pulse Rate from SpO2 Sensor 83 Respiratory Rate 22 24 Respiratory Effort / Characteristics Respiratory Depth Blood Pressure Blood Pressure Mean Blood Pressure Position Pulse Oximetry 99 Oxygen Delivery Method Sepsis Recent Fever Within 48 Hours Sepsis New/Unexplained Change in Mental Status Sepsis Action Taken by Nursing 08/03/23 18:00 08/03/23 18:30 08/03/23 19:00 Temperature Temperature Source Pulse Rate 77 72 Pulse Rate [Apical] Pulse Rate from SpO2 Sensor 80 Respiratory Rate 15 16 Respiratory Effort / Characteristics Respiratory Depth Blood Pressure 119/68 Blood Pressure Mean 95 Blood Pressure Position Pulse Oximetry 96 Oxygen Delivery Method Sepsis Recent Fever Within 48 Hours Sepsis New/Unexplained Change in Mental Status Sepsis Action Taken by Nursing 08/03/23 19:30 08/03/23 20:00 08/03/23 20:00 Temperature Temperature Source Pulse Rate 73 88 Pulse Rate [Apical] 104 H Pulse Rate from SpO2 Sensor Respiratory Rate 20 14 18 Respiratory Effort / Characteristics Respiratory Depth Blood Pressure Blood Pressure Mean Blood Pressure Position Pulse Oximetry 97 Oxygen Delivery Method Room Air Sepsis Recent Fever Within 48 Hours Sepsis New/Unexplained Change in Mental Status Sepsis Action Taken by Nursing Physical Exam GENERAL: oriented to person, place, and time. appears well-developed and well- nourished. HENT: Exam performed. - Head: Normocephalic and atraumatic. EYES: Conjunctivae and EOM are normal. Right eye exhibits no discharge. Left eye exhibits no discharge. No scleral icterus. NECK: Normal range of motion. Neck supple. No JVD present. CV: Normal rate, regular rhythm, normal heart sounds and intact distal pulses. There is no peripheral edema. Palpable radial pulses bue. PULM/CHEST: Effort normal and breath sounds normal. No respiratory distress. No stridor. no wheezes. no rales. ABD: The abdomen is soft. There is no tenderness. NEURO: Motor and sensation grossly intact. SKIN: Skin is warm and dry. He is not diaphoretic. PSYCH: Suicidal ideation Course Course 1615: The patient was evaluated in room C4. A complete history and physical exam was performed Cardiac monitoring: An order was placed for continuous cardiac monitoring. The monitor shows a rate of 80 with sinus rhythm interpreted by me 2030: Patient accepted to 3 S. Administered Medications Hydroxyzine HCl (Hydroxyzine Hcl 25 Mg Tab) 50 mg PO HSZ PRN PRN Reason: Insomnia Stop: 09/02/23 21:59 Last Admin: 08/03/23 22:58 Dose: 50 mg Documented By: HALI Medical Decision Making Laboratory Data Attestation: I reviewed the patient's lab results. 08/03/23 16:30 08/03/23 16:30 Lab Results 08/03/23 08/03/23 Range/Units 16:30 17:24 WBC 7.81 (4.8-10.8) K/ul RBC 4.72 (4.20-5.40) M/uL Hgb 14.4 (12.0-16.0) g/dl Hct 40.5 (37.0-47.0) % MCV 85.8 (80.0-100.0) fL MCH 30.5 (25.0-34.0) pg MCHC 35.6 (32.0-36.0) g/dL RDW Std Deviation 36.9 (36.4-46.3) fL RDW Coeff of Shar 11.9 (11.5-14.5) % Plt Count 247 (130-400) K/uL MPV 9.6 (9.4-12.4) fL Immature Gran % (Auto) 0.4 % Neut % (Auto) 70.3 % Lymph % (Auto) 22.4 % Lee % (Auto) 6.1 % Eos % (Auto) 0.3 % Baso % (Auto) 0.5 % Neut # (Auto) 5.49 (1.40-6.50) K/uL Lymph # (Auto) 1.75 (1.20-3.40) K/uL Lee # (Auto) 0.48 (0.11-0.59) K/uL Eos # (Auto) 0.02 (0.00-0.50) K/uL Baso # (Auto) 0.04 (0.00-0.20) K/uL Immature Gran # (Auto) 0.03 (0.01-0.20) K/uL ABG pH 7.49 H (7.35-7.45) ABG pCO2 30 L (35-46) mmHg ABG pO2 102 H (80-95) mmHg ABG HCO3 23 (19-24) mmol/L ABG O2 Saturation 99.9 H (90-95) % ABG Base Excess 0.4 (-9-1.8) mEq/L Neo Test Pos (Pos) Carboxyhemoglobin 1.3 % TH Oxygen Given ROOM AIR Sodium 139 (136-145) mmol/L Potassium 3.7 (3.5-5.1) mmol/L Chloride 107 (98-107) mmol/L Carbon Dioxide 24 (21-32) mmol/L Anion Gap 8 (3-11) BUN 11 (6-23) mg/dl Creatinine 0.65 (0.6-1.2) mg/dl Est Cr Clr Drug Dosing Not Reportable Est GFR ( Amer) 133.3 ml/min Est GFR (Non-Af Amer) 115.0 ml/min BUN/Creatinine Ratio 16.9 (10-20) Glucose 92 (70-99(Fasting)) mg/dl Calcium 9.1 (8.6-10.3) mg/dl Total Bilirubin 0.6 (0.2-1.0) mg/dl AST 13 (13-39) U/L ALT 9 (7-52) U/L Alkaline Phosphatase 37 (34-104) U/L Total Protein 7.3 (6.0-8.3) gm/dl Albumin 4.4 (3.4-5.0) gm/dl Globulin 2.9 (2.5-4.0) gm/dl Albumin/Globulin Ratio 1.5 (0.9-2) TSH 1.069 (0.300-4.500) uIu/ml Urine Color Yellow Urine Appearance Clear (Clear) Urine pH 5.5 (4.5-7.5) Ur Specific [place] 1.016 (1.000-1.030) Urine Protein Negative (Negative) Urine Glucose (UA) Negative (Negative) Urine Ketones Negative (Negative) Urine Blood Negative (Negative) Urine Nitrite Negative (Negative) Urine Bilirubin Negative (Negative) Urine Urobilinogen Negative (Negative) Ur Leukocyte Esterase 2+ H (Negative) Urine WBC (Auto) 10-30 H (0-5) /hpf Urine RBC (Auto) 5-10 H (0-4) /hpf U Hyaline Cast (Auto) 1-5 (0-5) /lpf U Epithel Cells (Auto) >30 H (0-5) /lpf Urine Bacteria (Auto) Negative (Negative) Urine Test Negative (Negative) Salicylates < 3.0 L (3.0-30) mg/dl Urine Opiates Screen Neg (Neg) Ur Methadone, Qual Neg (Neg) Acetaminophen < 3 L (10-30) ug/ml Urine Barbiturates Neg (Neg) Ur Phencyclidine (PCP) Neg (Neg) U Amphetamin/Meth Scrn Neg (Neg) MDMA (Ecstasy) Screen Neg (Neg) U Benzodiazepines Scrn Neg (Neg) Ur Cocaine Metabolite Neg (Neg) U Marijuana (THC) Screen Neg (Neg) Ethyl Alcohol mg/dL < 10.0 (<10.0) mg/dl SARS-CoV-2, RNA, NAAT NEGATIVE (NEGATIVE) Imaging Data Attestation: I personally reviewed and interpreted this imaging study as follows: My Impression: Chest x-ray negative. Airway clear. No pneumothorax. No consolidation. No cardiomegaly or cephalization.. No free air under the diaphragm. No fractures of the skeletal structures. Radiologist's Impression: Chest X-Ray 08/03/23 16:43 SINGLE VIEW CHEST CLINICAL HISTORY: Dyspnea FINDINGS: An AP, portable, upright chest radiograph is compared to study dated 08/01/2023. The cardiomediastinal silhouette is unremarkable. The lungs and pleural spaces are clear. No pneumothorax is seen. The bony thorax is grossly intact. IMPRESSION: No active disease in the chest. ACT 112: Negative or not required by law. Electronically signed by: Jonnie Weeks M.D. 08/03/2023 5:04 PM ECG Data Attestation: I personally reviewed and interpreted this ECG as follows: Rate (beats per minute): 78 Rhythm: + normal sinus ECG Intervals/blocks: + Normal QRS, + Normal NH and + Normal QT-c ECG ST segments: + Normal ST segments MDM Narrative 1615: The patient was evaluated in room C4. A complete history and physical exam was performed Cardiac monitoring: An order was placed for continuous cardiac monitoring. The monitor shows a rate of 80 with sinus rhythm interpreted by me 2030: Patient accepted to 3 S. Impression & Plan Depression with suicidal ideation Discharge Plan Visit Data Chief Complaint: Mental Health Evaluation Stated Complaint: MENTAL HEALTH EVAL ED Provider: Sreedhar Tinsley Discharge Problem: Depression with suicidal ideation Patient Disposition: Admitted As Inpatient Discharge Instructions Interventions: ED Discharge Assessment Last Done: 08/03/23 20:31
[2023-08-03] MEDS ORDERED: ACETAMINOPHEN 325 MG TAB PO PRN (22:00)
[2023-08-03] MEDS ORDERED: SODIUM CHLORIDE 0.65% NA SOLN 45 ML (OCEAN) PRN (22:00)
[2023-08-03] MEDS ORDERED: NICOTINE POLACRILEX 2 MG GUM MT PRN (22:00)
[2023-08-03] MEDS ORDERED: BISMUTH SUBSALICYLATE LIQD 236 ML PO PRN (22:00)
[2023-08-03] MEDS ORDERED: ALUMINUM/MAGNESIUM SUSP 30 ML UDC PO PRN (22:00)
[2023-08-03] MEDS ORDERED: MAGNESIUM HYDROXIDE SUSP 30 ML UDC PO PRN (22:00)
[2023-08-03] MEDS: hydrOXYzine HCl 25 MG TAB PO PRN (22:58)
[2023-08-04] MEDS: NICOTINE 21 MG/24 HR TDSY TD SCH (11:16)
[2023-08-04] MEDS ORDERED: LORazepam 1 MG TAB PO PRN (11:18)
[2023-08-04] MEDS: hydrOXYzine HCl 25 MG TAB PO PRN (11:23)
[2023-08-04] MEDS: FLUoxetine HCL 10 MG CAP PO SCH (11:58)
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
--- NOTE | 2023-08-04 16:01 | Electrocardiogram Report ---
Test Reason : Blood Pressure : / mmHG Vent. Rate : 078 BPM Atrial Rate : 078 BPM P-R Int : 152 ms QRS Dur : 080 ms QT Int : 366 ms P-R-T Axes : 064 062 045 degrees QTc Int : 417 ms Normal sinus rhythm Normal ECG No previous ECGs available Confirmed by [facility] ([id number]) on 08/04/2023 4:00:52 PM Referred By: REFERRED SELF Confirmed By:[facility]
[2023-08-04] MEDS: NITROFURANTOIN MONOHYDRATE 100 MG CAP PO SCH (16:16)
--- NOTE | 2023-08-05 15:51 | Psychiatric Progress Note ---
Date of Service August 05, 2023 Impression / Recommendations Impression This is a pleasant woman who has grown up in an [facility] household with lots of expectations of her regarding education, careers, and family. She ended up leaving the [employer], but she has internalized a lot of the influence that had on her as a child. There does not seem to be any genetic tendency towards mental illness. She is under an extreme amount of stress however with the recent break-up and experimentation with a relationship with another female. She is not sure how she wants to handle the marriage and seems to be in a "midlife crisis" at this time. She had a very serious suicide attempt by carbon monoxide poisoning. She definitely requires inpatient hospitalization at this time for safety. 08/05/2023: Patient seems to have stabilized now that she has used to the unit and feels comfortable. She is participating well. She is definitely showing a brighter affect. I know she is eager to get home to her family and time for Easter. So far, she seems to be doing okay with the fluoxetine but I like to raise it a little higher as soon as I can. Today I spent about 30 minutes on this case. This included meeting with the patient, reviewing the chart, nursing report, multidisciplinary team meeting, orders, and documentation. (1) Major depressive disorder, recurrent severe without psychotic features: (2) Generalized anxiety disorder: (3) UTI (urinary tract infection), uncomplicated: Plan 1. Patient is admitted here for safety, further evaluation, and treatment. Given what happened I think is very reasonable for her to be here. 2. Patient is on every 15 minute observation for safety. We have her on suicide precautions. 3. We are going to initiate a trial of fluoxetine to try to help with her mood and anxiety. We will start with 10 mg daily for a few days and likely go to 20 mg daily before discharge. I reviewed the uses, side effects, and time course and she gave informed consent. 4. I encouraged her to take part in our therapeutic milieu, attend groups and activities, maintain good hygiene, and try not to isolate. 5. Our medical people are available to evaluate and treat any medical issues that might arise. For her UTI, I started her on Macrobid 100 mg twice a day for 5 days after consulting with the pharmacist today. 6. We will set up a family meeting with either friends or her before discharge to make sure she is going to be going into a safe situation after discharge and we have some good discharge planning and crisis planning set up. 07/07/2023: We will continue with her current level of observation and precautions. Will continue the fluoxetine at 10 mg daily. After tomorrow's dose, if she still tolerating it, I will increase the dose to 20 mg daily. I encouraged her to keep going to groups and activities and taking part in the therapeutic milieu. We will set up the family meeting as soon as we can. Disposition will likely be back home with outpatient medication management and counseling. Given the severity of her suicide attempt, though, we might consider intensive outpatient as well. Suicide Risk Level Suicide Risk Level: Low (q15 min observation checks) Risk Factors Assessment Do You Have Access To A Gun?: Yes ( has siddiqui to gun cabinet) Protective Factors Assessment Employed: Yes Interval History Identifying Information CHRISTINE GRIFFIN is a 37-year-old F from [place] who presented to our emergency room 08/03/23 due to concerns of a suicide attempt by carbon monoxide poisoning. She was transferred to our psychiatric unit voluntarily when she was established to be medically stable. Chief Complaint "My anxiety and when I get upset or other issues, I cannot just deal." Review of Systems Sleep Information Total Hours of Sleep: 6 Sleep Comments: Pt given PRN Vistaril for sleep. Meal Information Percent Meal Consumed - Breakfast: 100 Percent Meal Consumed - Lunch: 100 Percent Meal Consumed - Dinner: 100 Nutrition Comment: Called for meal for Pt upon admission to the unit. Subjective Subjective Today I met with the patient, received nursing report, and reviewed her chart. We also had a multidisciplinary team meeting to discuss her care. Christine is in our hospital after a suicide attempt by carbon oxide poisoning. She started the fluoxetine yesterday. She had some as needed Vistaril yesterday. She described her mood as 8 out of 10 where 10 is the best it could ever be. We are setting up a meeting with her family. She has an appointment at [place] on Wednesday, August 08. When I met with the patient today, she talk to me a little bit about some of the things she is learning in groups. She mentioned ways to deal with her anger and set boundaries with others. Her mother is now in town to help out with the kids. She did not sleep well last night but she took a nap this morning and that helped her feel better. We talked a little bit about who she might want to have in the family meeting such as her , or her mother. She does have some support from friends as well as other people like her and sister, sister, and father. Appetite is okay. She denied suicidal or homicidal thoughts. No self-harm urges. She denied any auditory or visual hallucinatio ns. She feels well physically. So far she is tolerating the fluoxetine just fine. Physical Exam Psychiatric Patient was alert and cooperative. She was clean and well-groomed. Speech was normal. Eye contact was good. Mood was described as "doing better." Affect was bright. Thought process was logical and very goal-directed. There was no evidence of any hallucinations or delusions. Patient denied any suicidal or homicidal thoughts. Memory and concentration were good. No abnormal movements were seen. Gait was normal. Insight and judgment are impaired. Vital Signs (Past 24 Hours) Last Vital Signs Temp 36.7 C 08/05/23 06:37 Pulse 93 H 08/05/23 06:37 Resp 16 08/05/23 06:37 BP 113/75 08/05/23 06:37 Pulse Ox 99 08/03/23 21:27 O2 Del Method Room Air 08/03/23 21:27 Results & Data ([facility]) Current Inpatient Medications Current Inpatient Medications: Current Inpatient Medications Acetaminophen (Acetaminophen 325 Mg Tab) 650 mg PO Q4H PRN PRN Reason: Headache or Minor Fever Stop: 09/02/23 21:59 Al Hydrox/Mg Hydrox/Simethicone (Aluminum/Magnesium Susp 30 Ml Udc) 30 ml PO Q4H PRN PRN Reason: GI Upset Stop: 09/02/23 21:59 Bismuth Subsalicylate (Bismuth Subsalicylate Liqd 236 Ml) 15 ml PO PRN PRN PRN Reason: Loose Stool Stop: 09/02/23 21:59 Fluoxetine HCl (Fluoxetine Hcl 10 Mg Cap) 10 mg PO QAM [facility] Stop: 09/03/23 11:29 Last Admin: 08/05/23 09:02 Dose: 10 mg Hydroxyzine HCl (Hydroxyzine Hcl 25 Mg Tab) 50 mg PO HSZ PRN PRN Reason: Insomnia Stop: 04/25/24 21:59 Last Admin: 08/04/23 23:00 Dose: 50 mg Hydroxyzine HCl (Hydroxyzine Hcl 25 Mg Tab) 25 mg PO Q4H PRN PRN Reason: Anxiety Stop: 09/02/23 21:59 Last Admin: 08/05/23 14:36 Dose: 25 mg Lorazepam (Lorazepam 1 Mg Tab) 1 mg PO Q6H PRN PRN Reason: severe anxiety Stop: 09/03/23 11:17 Magnesium Hydroxide (Magnesium Hydroxide Susp 30 Ml Udc) 30 ml PO DAILY PRN PRN Reason: Constipation Stop: 09/02/23 21:59 Miscellaneous (Remove Nicoderm Patch) 1 each N/A DAILY@0859 [facility] Stop: 09/04/23 08:58 Last Admin: 08/05/23 09:07 Dose: 1 each Nicotine (Nicotine 21 Mg/24 Hr Tdsy) 21 mg TD QAM [facility] Stop: 09/03/23 08:59 Last Admin: 08/05/23 09:07 Dose: 21 mg Nicotine Polacrilex (Nicotine Polacrilex 2 Mg Gum) 1 piece MT PRN PRN PRN Reason: Nicotine Withdrawal Symptoms Stop: 09/02/23 21:59 Nitrofurantoin Macrocrystals (Nitrofurantoin Monohydrate 100 Mg Cap) 100 mg PO BID [facility] Stop: 08/08/23 21:01 Last Admin: 08/05/23 09:02 Dose: 100 mg Sodium Chloride (Sodium Chloride 0.65% Na Soln 45 Ml ([place])) 1 - 2 sprays NA PRN PRN PRN Reason: Nasal Dryness/Congestion Stop: 09/02/23 21:59 Mental Health & Subst Abuse Tx Psychiatrist Name of Psychiatrist: Brandy Cole - on waitlist Psychiatrist's Therapist [facility] The[facility] Date of Therapist Appointment: 08/09/23 Time of Therapist Appointment: 7:00 PM Air Quality Technician Name of Air Quality Technician: ELAYNE Post Discharge Appointments Primary Care Physician Name Of Family Doctor/PCP: Peggy [facility] Date of Future Appointment with PCP: 08/13/23 Time of Appointment with PCP: 10:25 arrival time Provider Appointment Comment: [address]
--- NOTE | 2023-08-06 15:19 | Psychiatric Progress Note ---
Date of Service August 06, 2023 Impression / Recommendations Impression This is a pleasant woman who has grown up in an [facility] household with lots of expectations of her regarding education, careers, and family. She ended up leaving the [employer], but she has internalized a lot of the influence that had on her as a child. There does not seem to be any genetic tendency towards mental illness. She is under an extreme amount of stress however with the recent break-up and experimentation with a relationship with another female. She is not sure how she wants to handle the marriage and seems to be in a "midlife crisis" at this time. She had a very serious suicide attempt by carbon monoxide poisoning. She definitely requires inpatient hospitalization at this time for safety. 08/06/2023: Patient is doing better, but we still have concerns about her impulsivity. Nevertheless, she is trying hard to get better and is participating well in the unit and doing everything she can to improve herself. Today I spent about 39 minutes on this case. This included meeting with the ramona sullivan, reviewing the chart, nursing report, multidisciplinary treatment team meeting, orders, and documentation. (1) Major depressive disorder, recurrent severe without psychotic features: (2) Generalized anxiety disorder: (3) UTI (urinary tract infection), uncomplicated: Plan 1. Patient is admitted here for safety, further evaluation, and treatment. Given what happened I think is very reasonable for her to be here. 2. Patient is on every 15 minute observation for safety. We have her on suicide precautions. 3. We are going to initiate a trial of fluoxetine to try to help with her mood and anxiety. We will start with 10 mg daily for a few days and likely go to 20 mg daily before discharge. I reviewed the uses, side effects, and time course and she gave informed consent. 4. I encouraged her to take part in our therapeutic milieu, attend groups and activities, maintain good hygiene, and try not to isolate. 5. Our medical people are available to evaluate and treat any medical issues that might arise. For her UTI, I started her on Macrobid 100 mg twice a day for 5 days after consulting with the pharmacist today. 6. We will set up a family meeting with either friends or her before discharge to make sure she is going to be going into a safe situation after discharge and we have some good discharge planning and crisis planning set up. 07/07/2023: We will continue with her current level of observation and precautions. Will continue the fluoxetine at 10 mg daily. After tomorrow's dose, if she still tolerating it, I will increase the dose to 20 mg daily. I encouraged her to keep going to groups and activities and taking part in the therapeutic milieu. We will set up the family meeting as soon as we can. Di sposition will likely be back home with outpatient medication management and counseling. Given the severity of her suicide attempt, though, we might consider intensive outpatient as well. 07/08/2023: We will continue with our current level of observation and precautions. I increased the fluoxetine to 20 mg daily starting tomorrow, August 06. The family meeting went relatively well. I encouraged her to keep going to groups and activities. Disposition will likely be back home with outpatient appointments and those are set. We will work on safety planning. Suicide Risk Level Suicide Risk Level: Low (q15 min observation checks) Risk Factors Assessment Do You Have Access To A Gun?: Yes ( has siddiqui to gun cabinet) Protective Factors Assessment Employed: Yes Interval History Identifying Information CHRISTINE GRIFFIN is a 37-year-old F from [place] who presented to our emergency room 08/03/23 due to concerns of a suicide attempt by carbon monoxide poisoning. She was transferred to our psychiatric unit voluntarily when she was established to be medically stable. Chief Complaint "My anxiety and when I get upset or other issues, I cannot just deal." Review of Systems Sleep Information Total Hours of Sleep: 7 Sleep Comments: Pt given PRN Vistaril for sleep. Meal Information Percent Meal Consumed - Breakfast: 100 Percent Meal Consumed - Lunch: 100 Percent Meal Consumed - Dinner: 100 Nutrition Comment: Called for meal for Pt upon admission to the unit. Subjective Subjective Today I met with the patient, received nursing report, and reviewed her chart. We also had a multidisciplinary treatment team meeting to discuss her care. Christine is in our hospital after suicide attempt by carbon monoxide poisoning. Nurses report that her mother visited and the visit went well. Patient has been doing okay on the unit and attending groups reliably. She became somewhat shut down during a group therapy session on boundaries. Patient was describing her mood to the staff as 9 out of 10 where 10 is the best it could ever be. Patient says that her suicidal ideation is "diminishing." She has been working on trying to manage her stress. She slept well and is very well-groomed. The family meeting also took place today and it sounds like it went okay but the niece family and therapist confronted the patient a little bit more about what it happened. Apparently, Christine had taken the children and packed them in the car and just drove to [place] recently. This is another evidence of some impulsive behavior. I believe that was the theme of the family meeting beside safety. When I met with Christine today, she had just gotten out of the family meeting but was pleasant and cooperative and relaxed. She says she wants help and wants to get into a regular routine where she can keep things stable. She slept well. She is tolerating her medication well and she noticed also that her urinary tract infection symptoms are diminishing. She has no other medical issues. She denies any suicidal ideation, homicidal ideation, or self-harm urges. She is interested in increasing the fluoxetine to the full starting dose of 20 mg soon. Physical Exam Psychiatric Patient was alert and cooperative. She was clean and well-groomed. Speech was normal. Eye contact was good. Mood was described as "improving." Affect was bright but slightly anxious. Thought process was logical and goal-directed. There was no evidence of any hallucinations or delusions. Patient denied any suicidal or homicidal thoughts. Memory and concentration were good. No abnormal movements were seen. Gait was normal. Insight and judgment are impaired. Vital Signs (Past 24 Hours) Last Vital Signs Temp 36.5 C 08/06/23 06:21 Pulse 60 08/06/23 06:21 Resp 16 08/06/23 06:21 BP 106/68 08/06/23 06:21 Pulse Ox 98 08/06/23 06:21 O2 Del Method Room Air 08/06/23 06:21 Results & Data ([facility]) Current Inpatient Medications Current Inpatient Medications: Current Inpatient Medications Acetaminophen (Acetaminophen 325 Mg Tab) 650 mg PO Q4H PRN PRN Reason: Headache or Minor Fever Stop: 09/02/23 21:59 Al Hydrox/Mg Hydrox/Simethicone (Aluminum/Magnesium Susp 30 Ml Udc) 30 ml PO Q4H PRN PRN Reason: GI Upset Stop: 09/02/23 21:59 Bismuth Subsalicylate (Bismuth Subsalicylate Liqd 236 Ml) 15 ml PO PRN PRN PRN Reason: Loose Stool Stop: 09/02/23 21:59 Fluoxetine HCl (Fluoxetine Hcl 10 Mg Cap) 10 mg PO QAM [facility] Stop: 09/03/23 11:29 Last Admin: 08/06/23 08:50 Dose: 10 mg Hydroxyzine HCl (Hydroxyzine Hcl 25 Mg Tab) 50 mg PO HSZ PRN PRN Reason: Insomnia Stop: 09/02/23 21:59 Last Admin: 08/05/23 23:11 Dose: 50 mg Hydroxyzine HCl (Hydroxyzine Hcl 25 Mg Tab) 25 mg PO Q4H PRN PRN Reason: Anxiety Stop: 09/02/23 21:59 Last Admin: 08/06/23 14:07 Dose: 25 mg Lorazepam (Lorazepam 1 Mg Tab) 1 mg PO Q6H PRN PRN Reason: severe anxiety Stop: 09/03/23 11:17 Magnesium Hydroxide (Magnesium Hydroxide Susp 30 Ml Udc) 30 ml PO DAILY PRN PRN Reason: Constipation Stop: 09/02/23 21:59 Miscellaneous (Remove Nicoderm Patch) 1 each N/A DAILY@0859 [facility] Stop: 09/04/23 08:58 Last Admin: 08/06/23 08:54 Dose: Not Given Nicotine (Nicotine 21 Mg/24 Hr Tdsy) 21 mg TD QAM [facility] Stop: 09/03/23 08:59 Last Admin: 08/06/23 08:53 Dose: 21 mg Nicotine Polacrilex (Nicotine Polacrilex 2 Mg Gum) 1 piece MT PRN PRN PRN Reason: Nicotine Withdrawal Symptoms Stop: 09/02/23 21:59 Nitrofurantoin Macrocrystals (Nitrofurantoin Monohydrate 100 Mg Cap) 100 mg PO BID [facility] Stop: 08/08/23 21:01 Last Admin: 08/06/23 08:50 Dose: 100 mg Sodium Chloride (Sodium Chloride 0.65% Na Soln 45 Ml ([place])) 1 - 2 sprays NA PRN PRN PRN Reason: Nasal Dryness/Congestion Stop: 09/02/23 21:59 Mental Health & Subst Abuse Tx Psychiatrist Name of Psychiatrist: Brandy Cole - on waitlist Psychiatrist's Therapist Name of Therapist: Brandy Cole - [facility] Therapist's Date of Therapist Appointment: 08/09/23 Time of Therapist Appointment: 7:00 PM Hip Hop Performers Name of Hip Hop Performers: NA Post Discharge Appointments Primary Care Physician Name Of Family Doctor/PCP: Peggy Draper Dr. Oh [facility] Date of Future Appointment with PCP: 08/13/23 Time of Appointment with PCP: 10:25 arrival time Provider Appointment Comment: Carolyn Biggs
[2023-08-07] MEDS: FLUoxetine HCL 20 MG CAP PO SCH (08:45)
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
== END 2023-08-07 11:32 | disposition home or self-care (01) | DRG 885 ==
LOC: ED 15:48 → 3S 20:04